=== PATIENT | female | born 1990 | race Two or more races ===

== ENCOUNTER 2018-07-17 17:05 | Emergency (ER) | payer SELFPAY ==
[~2018-07-17] VITALS: Ht 157.5 cm; Wt 60.3 kg
--- NOTE | 2018-07-17 17:30 | NUR ---
ED Nurse Note: Pt came into the ER w/ complaints of abdominal pain x 10 days. Pt is rating the pain a 10/10 and radiating to the right leg. A + O x4. Ambulatory. Skin warm to touch. 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
[2018-07-17 17:31] VITALS: BP 116/46
--- NOTE | 2018-07-17 17:36 | NUR ---
ED Nurse Note: Urine has been collected and sent to lab.
[2018-07-17 17:44] LABS: APPEARANCE,URINE SLIGHTLY CLOUDY; BILIRUBIN, URINE NEGATIVE (NEGATIVE); COLOR,URINE YELLOW; GLUCOSE, URINE (UA) NEGATIVE (NEGATIVE); KETONES,URINE NEGATIVE (NEGATIVE); LEUKOCYTE ESTERASE ,URINE 1+ (NEGATIVE); NITRITE,URINE NEGATIVE (NEGATIVE); PH,URINE 8 (4.5-8.0); PROTEIN,URINE NEGATIVE (NEGATIVE); UROBILINOGEN,URINE 1 MG/DL (0.0-1.0)
[2018-07-17] MEDS ORDERED: Ketorolac 30mg Inj IV ONE (17:45)
[2018-07-17 18:05] LABS: BASOPHILS % (AUTO) 1.2 % (0.0-2.0); EOSINOPHILS % (AUTO) 5.2 % (0.0-3.0); HEMATOCRIT 40.5 % (37.0-47.0); HEMOGLOBIN 13.3 G/DL (12.0-16.0); LYMPHOCYTES % (AUTO) 22.9 % (20.0-45.0); MEAN CORPUSCULAR VOLUME 90 FL (80-99); NEUTROPHILS % (AUTO) 57.7 % (45.0-75.0); PLATELET COUNT 251 K/UL (150-450); RED BLOOD COUNT 4.51 M/UL (4.20-5.40); RED CELL DISTRIBUTION WIDTH 11.7 % (11.6-14.8); WHITE BLOOD COUNT 5.9 K/UL (4.8-10.8)
[2018-07-17 18:10] LABS: ANION GAP 7 mmol/L (5-15); BLOOD UREA NITROGEN 9 mg/dL (7-18); CALCIUM 9.4 MG/DL (8.5-10.1); CARBON DIOXIDE 24 MMOL/L (21-32); CHLORIDE 105 MMOL/L (98-107); CREATININE 0.7 MG/DL (0.55-1.30); POTASSIUM 4.5 MMOL/L (3.5-5.1); SODIUM 136 MMOL/L (136-145)
[2018-07-17 18:15] LABS: ALANINE AMINOTRANSFERASE 24 U/L (12-78); ALBUMIN 3.6 G/DL (3.4-5.0); ALBUMIN/GLOBULIN RATIO 0.9 (1.0-2.7); ALKALINE PHOSPHATASE 62 U/L (46-116); ASPARTATE AMINO TRANSFERASE 16 U/L (15-37); BILIRUBIN,TOTAL 0.5 MG/DL (0.2-1.0)
--- NOTE | 2018-07-17 18:32 | NUR ---
ED Nurse Note: Pt went down to US.
--- NOTE | 2018-07-17 18:32 | NUR ---
HAND-OFF: Report given to CATALINO Dalton due to moving her to fast track.
--- NOTE | 2018-07-17 19:11 | NUR ---
HAND-OFF: Report given to Stevenson Davis.
[2018-07-17] MEDS ORDERED: NORCO 5-325 TA1 EACH ORAL (20:13)
[2018-07-17] MEDS ORDERED: Morphine Sulfate 2mg/ml Inj IVP ONE (20:15)
[2018-07-17 20:29] VITALS: BP_SYST 114; BP_SYST 115; BP_DIAS 48; BP_DIAS 54
--- NOTE | 2018-07-17 20:31 | NUR ---
ED Nurse Note: Pt cleared DC bt ERMD. Pt is AO x 4times, VSS, on room air no distress. DC and meds instructions given to Pt, Pt understood well. ID bend and IV site removed. Pt walked out unit with steady gait with friend.
[2018-07-17 20:33] VITALS: BP 115/48
--- NOTE | 2018-07-17 22:45 | Emergency Room Report ---
History of Present Illness General Chief Complaint: Abdominal Pain Source: Patient Present Illness HPI Patient is a 28-year-old female presented after increased right-sided abdominal pain. She reports having worsening pain over the past 3-4 days. She denies any fever. She had not been vomiting. Patient reports having no recent trauma. She had onset of pain during light activity. Pain is gradually worsened over time.She denies being . 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16 Review of Systems All Other Systems: negative except mentioned in HPI Physical Exam Vital Signs Date Time Temp Pulse Resp B/P (MAP) Pulse Ox O2 Delivery O2 Flow Rate FiO2 07/17/18 17:10 98.4 105 16 103/61 93 Room Air 07/17/18 17:31 100 Sp02 EP Interpretation: reviewed, normal General Appearance: normal inspection, well appearing, no apparent distress, alert, GCS 15 Head: atraumatic ENT: normal ENT inspection, hearing grossly normal, normal voice Neck: normal inspection, full range of motion, supple, no bony tend Respiratory: normal inspection, lungs clear, normal breath sounds, no respiratory distress, no retraction, no wheezing Cardiovascular #1: regular rate, rhythm, no edema Gastrointestinal: normal inspection, normal bowel sounds, non tender, soft, no guarding, no hernia Genitourinary: no CVA tenderness, other - suprapubic tenderness, right greater than left Musculoskeletal: normal inspection, back normal, normal range of motion Neurologic: normal inspection, alert, oriented x3, responsive, oracle drm consultant III-XII nml as tested, speech normal Psychiatric: normal inspection, judgement/insight normal, mood/affect normal Skin: normal inspection, normal color, no rash Medical Decision Making Diagnostic Impression: Primary Impression: Complex cyst of right ovary ER Course Patient presented for abdominal pain. Differential diagnosis included was not limited to ruptured ovarian cyst, ovarian torsion, bowel obstruction, hernia, ectopic among others.Because of complexity of patient's case laboratory testing and imaging studies were ordered. Pelvic ultrasound showed complex adnexal cyst with small amount of free fluid. Patient given Toradol for pain with some improvement. Patient is given prescription for pain medications. She is advised to follow-up with [facility] in the next 1-2 days for recheck. Labs Test 07/17/18 17:30 07/17/18 17:45 Urine Color Yellow Urine Appearance Slightly cloudy Urine pH 8 (4.5-8.0) Urine Specific [place] 1.015 (1.005-1.035) Urine Protein Negative (NEGATIVE) Urine Glucose (UA) Negative (NEGATIVE) Urine Ketones Negative (NEGATIVE) Urine Blood Negative (NEGATIVE) Urine Nitrite Negative (NEGATIVE) Urine Bilirubin Negative (NEGATIVE) Urine Urobilinogen 1 MG/DL (0.0-1.0) Urine Leukocyte Esterase 1+ (NEGATIVE) Urine RBC 0-2 /HPF (0 - 2) Urine WBC 0-2 /HPF (0 - 2) Urine Squamous Epithelial Cells Moderate /LPF (NONE/OCC) Urine Bacteria Few /HPF (NONE) Urine HCG, Qualitative Negative (NEGATIVE) White Blood Count 5.9 K/UL (4.8-10.8) Red Blood Count 4.51 M/UL (4.20-5.40) Hemoglobin 13.3 G/DL (12.0-16.0) Hematocrit 40.5 % (37.0-47.0) Mean Corpuscular Volume 90 FL (80-99) Mean Corpuscular Hemoglobin 29.5 PG (27.0-31.0) Mean Corpuscular Hemoglobin Concent 32.9 G/DL (32.0-36.0) Red Cell Distribution Width 11.7 % (11.6-14.8) Platelet Count 251 K/UL (150-450) Mean Platelet Volume 8.0 FL (6.5-10.1) Neutrophils (%) (Auto) 57.7 % (45.0-75.0) Lymphocytes (%) (Auto) 22.9 % (20.0-45.0) Monocytes (%) (Auto) 13.0 % (1.0-10.0) Eosinophils (%) (Auto) 5.2 % (0.0-3.0) Basophils (%) (Auto) 1.2 % (0.0-2.0) Prothrombin Time 10.3 SEC (9.30-11.50) Prothromb Time International Ratio 1.0 (0.9-1.1) Activated Partial Thromboplast Time 27 SEC (23-33) Sodium Level 136 MMOL/L (136-145) Potassium Level 4.5 MMOL/L (3.5-5.1) Chloride Level 105 MMOL/L (98-107) Carbon Dioxide Level 24 MMOL/L (21-32) Anion Gap 7 mmol/L (5-15) Blood Urea Nitrogen 9 mg/dL (7-18) Creatinine 0.7 MG/DL (0.55-1.30) Estimat Glomerular Filtration Rate > 60 mL/min (>60) Glucose Level 91 MG/DL (74-106) Calcium Level 9.4 MG/DL (8.5-10.1) Total Bilirubin 0.5 MG/DL (0.2-1.0) Aspartate Amino Transf (AST/SGOT) 16 U/L (15-37) Alanine Aminotransferase (ALT/SGPT) 24 U/L (12-78) Alkaline Phosphatase 62 U/L (46-116) Total Protein 7.7 G/DL (6.4-8.2) Albumin 3.6 G/DL (3.4-5.0) Globulin 4.1 g/dL Albumin/Globulin Ratio 0.9 (1.0-2.7) Lipase 126 U/L (73-393) Last Vital Signs Date Time Temp Pulse Resp B/P (MAP) Pulse Ox O2 Delivery O2 Flow Rate FiO2 07/17/18 20:33 98.5 90 15 115/48 100 Room Air 100 87 Status: improved Disposition: HOME, SELF-CARE Condition: Stable Scripts Hydrocodone Bit/Acetaminophen 5-325* (NORCO 5-325*) 1 Each Tablet 1 TAB ORAL Q6H PRN for For Pain, #20 TAB 0 Refills Prov: Roger Joshi MD 07/17/18 Patient Instructions: Abdominal Pain, Adult Roger Joshi MD Jul 17, 2018 22:45
--- NOTE | 2018-07-18 10:40 | Diagnostic Imaging Report ---
Indication:Lower abdominal and pelvic pain. Negative test Technique: Grayscale and duplex Doppler imaging of the pelvis performed utilizing a transabdominal and endovaginal scan. Comparison: None Findings: There are multiple uterine masses demonstrated the largest of which appears to be central and the heterogeneous measuring between 4 and 5 cm. The endometrium is obscured but is visualized and the has a thickness of about between 16 and 17 mm. The uterus measures 9 x 7 x 5 cm. Small amount of free fluid is present. Both ovaries demonstrate dopplerable blood flow with multiple cysts with areas of retracting clot and hypoechogenicity indicative of hemorrhagic cysts. The right ovary is 6 x 4.6 x 2 2.1 cm. Left ovary 5.5 x 5.1 x 3.2 cm. IMPRESSION: Multiple uterine masses largest of which is central and consistent with leiomyomata. Evidence of bilateral hemorrhagic cysts. Six-week follow-up recommended
== END 2018-07-17 20:35 | disposition home or self-care (01) ==
LOC: EMR 17:46
DX: N83.201 Unspecified ovarian cyst, right side (principal); R10.9 Unspecified abdominal pain; Z88.6 Allergy status to analgesic agent; Z88.5 Allergy status to narcotic agent; D39.11 Neoplasm of uncertain behavior of right ovary; Z85.41 Personal history of malignant neoplasm of cervix uteri
CPT/HCPCS: 36415; 76830; 76856; 80053; 81003; 81025; 83690; 85025; 85610; 85730; 86850; 86900; 86901; 96361; 96374; 96375; 99284; J1885; J2270